=== PATIENT | female | born 1995 | race Caucasian/White ===

== ENCOUNTER 2017-04-08 13:39 | Emergency (ER) | payer MEDICAID, OTHER ==
[~2017-04-08] VITALS: Ht 160 cm; Wt 78.4 kg
[~2017-04-08 13:39] MED LIST: PNV1TABL43 PO
[2017-04-08 13:40] VITALS: Ht 160 cm; Wt 78.4 kg
--- NOTE | 2017-04-08 13:56 | ERA ---
ER Documentation Chief Complaint Date/Time DATE: 04/08/17 TIME: 13:52 Chief Complaint right index pain/injury HPI Otherwise healthy 21-year-old female presented with a chief complaint of right second digit swelling 1-2 weeks. Patient has not done anything for the symptoms at this time. Patient denies any loss of motion, numbness, tingling or loss of sensation. Patient denies trauma, medical conditions, alcohol or drug use. Vaccination status is up-to-date including Tdap. Nursing notes have been reviewed and are consistent with history given. ROS All systems reviewed and are negative except as per history of present illness. Medications Home Meds Active Scripts Hydrocodone/Acetaminophen ([place] 5-325 Tablet) 1 Each Tablet, 1 TAB PO Q6H Y for PAIN, #7 TAB Prov:JESSICA GONZALEZ PA-C 04/08/17 Cephalexin* (Keflex*) 500 Mg Capsule, 500 MG PO QID for 5 Days, CAP Prov:JESSICA GONZALEZ PA-C 04/08/17 Sulfamethoxazole/Trimethoprim* (Bactrim Ds* Tablet) 1 Each Tablet, 1 TAB PO BID , #14 TAB Prov:JESSICA GONZALEZ PA-C 04/08/17 Reported Medications Vit/Fe Fumarate/Fa* ( Vitamin Tablet*) 1 Tab Tablet, 1 TAB PO DAILY, TAB 09/01/14 Allergies Allergies: Coded Allergies: No Known Allergy (Unverified , 09/01/14) PMhx/Soc Hx Alcohol Use: No Hx Substance Use: No Hx Tobacco Use: No Physical Exam Vitals Vital Signs Date Time Temp Pulse Resp B/P Pulse Ox O2 Delivery O2 Flow Rate FiO2 04/08/17 13:40 98.1 69 18 108/69 99 Physical Exam Const: Well-appearing overweight 21-year-old female no acute distress Head: Atraumatic Eyes: Normal Conjunctiva ENT: Normal External Ears, Nose and Mouth. Neck: Full range of motion..~ No meningismus. Resp: Clear to auscultation bilaterally Cardio: Regular rate and rhythm, no murmurs Abd: Soft, non tender, non distended. Normal bowel sounds Skin: As noted in extremity exam. No petechiae or rashes Back: No midline or flank tenderness Ext: Swelling and erythema distal to the DIP of the right and second digit along the nail bed fold crossing the midline. Mild to moderate tenderness. No palmar swelling or erythema noted. Neur: Awake and alert Psych: Normal Mood and Affect Results 24 hrs Current Medications Medications (Trade) Dose Ordered Sig/Theresa Route PRN Reason Start Time Stop Time Status Last Admin Dose Admin Lidocaine (Xylocaine 2% (Mdv) 20 ml) 20 ml ONCE ONCE INJ 04/08/17 14:00 04/08/17 14:01 DC Procedures/MDM This is a 21-year-old female presenting with a chief complaint of right second digit swelling. Patient has signs and symptoms most consistent with paronychia versus abscess. Wound area is fluctuant. I&D was performed using 3 mL of lidocaine without epi for digital block of the affected extremity. 11 blade used to make a 4 mm horizontal incision along the nail fold. 2 mL of purulent material was expressed. Patient was neurovascularly intact after the procedure. Patient will be discharged with antibiotics as well as discharge instructions with return precautions. Low suspicion for neurovascular compromise or bony involvement. Vitals are stable and current condition is appropriate for discharge. Discharge meds: Bactrim and Keflex p.o. Departure Diagnosis: Primary Impression: Paronychia Qualified Code: L03.011 - Paronychia, right Condition: Stable Additional Instructions: Follow up with your PCP within the next 1-3 days for a more thorough evaluation and a possible referral to a specialist. Return the the emergency department immediately if symptoms worsen or change. If you have any questions regarding medications, ask your pharmacist or us before you leave. If any adverse reactions occur while taking your medications, discontinue the treatment and return to the emergency department immediately. Take your medications as directed, and complete the entire course of treatment. JESSICA GONZALEZ PA-C Apr 08, 2017 13:56
[2017-04-08] MEDS ORDERED: LIDOCAINE 2% (MDV) 20 ML INJ INJ ONE (14:00)
[2017-04-08] MEDS ORDERED: SULF1TAB31 PO (15:10)
[2017-04-08] MEDS ORDERED: CEPH-443 PO (15:10)
[2017-04-08] MEDS ORDERED: HYDR-906 PO (15:10)
[2017-04-08] MEDS ORDERED: IBUPROFEN 600 MG TAB PO ONE (16:00)
== END 2017-04-08 15:41 | disposition home or self-care (01) ==
LOC: FTE 13:39
DX: L03.011 Cellulitis of right finger (principal)
CPT/HCPCS: 26010; Z7502; Z7610

== ENCOUNTER 2017-04-29 06:27 | Emergency (ER) | payer OTHER ==
[~2017-04-29] VITALS: Ht 157.5 cm; Wt 74.5 kg
[~2017-04-29 06:27] MED LIST changes: +CEPH-443 PO; +HYDR-906 PO; +SULF1TAB31 PO
[2017-04-29 06:33] VITALS: Ht 157.5 cm; Wt 74.5 kg
[2017-04-29] MEDS ORDERED: ONDANSETRON 4 MG INJ IV STA (07:31)
[2017-04-29] MEDS ORDERED: SOD CHLORIDE 0.9% 1,000 ML IV STA (07:31)
[2017-04-29] MEDS ORDERED: morphine 4 MG/ML VIAL IV STA ×2 (07:31→09:57)
[2017-04-29 08:12] LABS: BASOPHIL # 0.1 10^3/ul (0.0-0.1); BASOPHILS % 0.9 % (0.0-2.0); EOSINOPHILS # 0.1 10^3/ul (0.0-0.5); EOSINOPHILS % 1.2 % (0.0-7.0); HEMATOCRIT 37.9 % (37.0-47.0); HEMOGLOBIN 13.4 g/dl (12.0-16.0); LYMPHOCYTES # 1.8 10^3/ul (0.8-2.9); LYMPHOCYTES % 22.3 % (18.0-55.0); MEAN CORPUSCULAR HEMOGLOBIN 30.9 pg (29.0-33.0); MEAN CORPUSCULAR HGB CONC 35.4 g/dl (32.0-37.0); MEAN CORPUSCULAR VOLUME 87.3 fl (72.0-104.0); MONOCYTE # 0.7 10^3/ul (0.3-0.9); NEUTROPHILS % 67.4 % (30.0-74.0); PLATELET COUNT 315 10^3/UL (140-415); RED BLOOD COUNT 4.34 10^6/ul (4.20-5.40); RED CELL DISTRIBUTION WIDTH 12.4 % (11.5-14.5); WHITE BLOOD COUNT 8.1 10^3/ul (4.8-10.8)
[2017-04-29 08:19] LABS: ADD UMIC YES; UR ASCORBIC ACID 40 mg/dL (NEGATIVE); UR BILIRUBIN (Dip) NEGATIVE (NEGATIVE); UR BLOOD (Dip) NEGATIVE (NEGATIVE); UR CLARITY CLEAR (CLEAR); UR COLOR YELLOW (YELLOW); UR GLUCOSE (Dip) NEGATIVE (NEGATIVE); UR KETONES (Dip) NEGATIVE (NEGATIVE); UR LEUKOCYTE ESTERASE (Dip) NEGATIVE Leu/ul (NEGATIVE); UR MUCUS FEW /HPF (NONE SEEN); UR NITRITE (Dip) NEGATIVE (NEGATIVE); UR RBC 1 /HPF (0-5); UR SPECIFIC GRAVITY (Dip) 1.032 (1.003-1.030); UR TOTAL PROTEIN (Dip) 1+ mg/dl (NEGATIVE); UR UROBILINOGEN (Dip) NEGATIVE (NEGATIVE)
--- NOTE | 2017-04-29 08:47 | RADRPT ---
PROCEDURE: CT Abdomen and Pelvis without contrast. CLINICAL INDICATION: Abdominal pain. TECHNIQUE: CT scan of the abdomen and pelvis without contrast was performed on a multidetector hig h-resolution CT scanner. The patient was scanned without intravenous contrast. Coronal and sagittal reformatted images were obtained from the axial source images. Images were reviewed on a high-resol [employer] PACS workstation. One or more of the following dose reduction techniques were used: Automated exposure control, adjustment of the mA and/or kV according to patient size, use of iterative recon struction technique. The total exam CTDI equals 10.67 mGy and the total exam DLP equals 602.26 mGy- cm. COMPARISON: None. FINDINGS: CT abdomen: The lung bases are clear. The heart size is normal, without pericardial thickening or effusion. The liver is normal in size and density without focal mass or intrahepatic biliary dilatation. The spleen is normal in size and homogeneous in density. The stomach is grossly unremarkable. The panc reas as visualized is normal. Small gallstones are noted. Otherwise, the gallbladder and biliary t ree are unremarkable and there is no evidence for biliary dilatation. The adrenal glands are symmet aliyah and normal. The kidneys are symmetrically unremarkable as well. No renal calculus or obstructi ve uropathy or mass lesion is seen. The aorta is of normal caliber. There is no retroperitoneal lymphadenopathy. The rhona hepatis reg ion is clear. There is mild nonspecific fat stranding seen within the left upper quadrant, anterior to the proximal descending colon. No definite associated adjacent bowel wall thickening is seen. A small amount of layering hypodense fluid is seen within the inferior left paracolic gutter (image 1 27, series 3). This appears to be continuous with the left ovary. A small amount of fluid is also present in the anterior midline pelvis, just inferior to the mid sigmoid colon without evidence of a ssociated colonic wall edema. CT pelvis: The small bowel loops situated within the pelvis are unremarkable. There is suggestion of arcuate v ersus septate uterus with prominent uterine horns and focal thickening of the midline fundal myometr ium which measures up to 2.5 cm. A 2.8 cm left adnexal cyst is present, within normal limits in a m oderately female. The pelvic sidewalls and inguinal regions are clear. The appendix is not clearly seen. A small focus of gas is seen non dependently within the urinary bladder. The surrounding osseous structures are unremarkable. No osteolytic or osteoblastic lesion is detec adina. IMPRESSION: 1. Small amount of left upper quadrant mesenteric versus omental fat stranding, nonspecific . No d efinite associated bowel wall thickening is seen however evaluation is limited without IV / enteric contrast. Considerations include mild enterocolitis or panniculitis. 2. 2.8 cm left adnexal cyst with adjacent layering hyperdense fluid tracking into the left paracoli c gutter. Ruptured hemorrhagic ovarian cyst is a consideration. Pelvic ultrasound may be useful fo r further evaluation. 3. Small focus of gas seen non dependently within the urinary bladder. Correlate with recent histo ry of catheterization or urinary analysis for cystitis. 4. Suggestion of arcuate versus septate uterus as described above. 5. Cholelithiasis without evidence of cholecystitis. RPTAT: AA .Elie Gould MD, MD Date Time Electronically viewed and signed by .Elie Gould MD, on 04/29/2017 08:47 .A/
[2017-04-29 09:26] LABS: ALBUMIN 4.3 g/dl (3.3-4.9); ALBUMIN/GLOBULIN RATIO 1.65; CALCIUM 8.4 mg/dl (8.4-10.2); CREATININE 0.64 mg/dl (0.44-1.00); POTASSIUM 4.1 mmol/L (3.5-5.1); TOTAL PROTEIN 6.9 g/dl (6.1-8.1)
--- NOTE | 2017-04-29 11:09 | RADRPT ---
PROCEDURE: US Pelvis. CLINICAL INDICATION: Pelvic and abdominal pain. TECHNIQUE: Multiple sonographic images of the pelvis were obtained utilizing a transabdominal and endovaginal technique. The images were reviewed on a PACS workstation. COMPARISON: None. FINDINGS: The uterus is visualized and measures 9.5 cm sagittal by 4.1 cm AP by 5.8 cm transverse. There is an uterus subseptate arcuate uterus versus arcuate uterus. The endometrial echo complex is normal and measures 1.3 cm. There is no evidence for free fluid. The right ovary has a normal echotexture and measures 3.4 x 1.7 by 2.5 cm with normal blood flow on Doppler imaging. Trace fluid is noted in the right adnexal area. . The left ovary has a normal echotexture and measures 3.1 by 2.5 x 4 cm.. No adnexal masses are noted. IMPRESSION: 1. 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 A pelvic MRI can be performed for f urther characterization if clinically indicated. 2. Trace fluid is noted in the right adnexal area. Otherwise, unremarkable pelvic not of the sonog antonette para Physician Urvashi Date Time Electronically viewed and signed by Physician Urvashi on 04/29/2017 11:09 /
[2017-04-29] MEDS ORDERED: ACET325T33 PO (11:58)
[2017-04-29] MEDS ORDERED: ONDA4TAB14 PO (11:58)
[2017-04-29 12:18] VITALS: BP 112/61; PULSE 61; TEMP 98.2
--- NOTE | 2017-04-29 12:30 | ERD ---
ER Documentation Chief Complaint Date/Time DATE: 04/29/17 TIME: 12:18 Chief Complaint Patient complains of rectal and buttock pain x since last night HPI 21-year-old female patient with no significant past medical history presents the ED complaining of anal and abdominal pain that started intermittently for 3 weeks. Reports that she was having sex with her boyfriend earlier today and started to have worsening pain. States that she has had a few episodes of nonbilious nonbloody vomiting. Reports that her last menses was on March 17, 2017. Denies any chest pain, shortness of breath, nausea, vomiting, diarrhea. ROS All systems reviewed and are negative except as per history of present illness. Medications Home Meds Active Scripts Ondansetron (Ondansetron Odt) 4 Mg Tab.rapdis, 4 MG PO Q6H Y for NAUSEA AND/OR VOMITING, #10 TAB Prov:ADDY DENTON PA-C 04/29/17 Acetaminophen* (Tylenol*) 325 Mg Tablet, 2 TAB PO Q8 Y for PAIN AND OR ELEVATED TEMP, #20 TAB Prov:ADDY DENTON PA-C 04/29/17 Hydrocodone/Acetaminophen ([place] 5-325 Tablet) 1 Each Tablet, 1 TAB PO Q6H Y for PAIN, #7 TAB Prov:JESSICA GONZALEZ PA-C 04/08/17 Cephalexin* (Keflex*) 500 Mg Capsule, 500 MG PO QID for 5 Days, CAP Prov:JESSICA GONZALEZ PA-C 04/08/17 Sulfamethoxazole/Trimethoprim* (Bactrim Ds* Tablet) 1 Each Tablet, 1 TAB PO BID , #14 TAB Prov:JESSICA GONZALEZ PA-C 04/08/17 Reported Medications Vit/Fe Fumarate/Fa* ( Vitamin Tablet*) 1 Tab Tablet, 1 TAB PO DAILY, TAB 09/01/14 Allergies Allergies: Coded Allergies: No Known Allergy (Unverified , 04/29/17) PMhx/Soc History of Surgery: No Anesthesia Reaction: No Hx Neurological Disorder: No Hx Respiratory Disorders: No Hx Cardiac Disorders: No Hx Psychiatric Problems: No Hx Miscellaneous Medical Probl: No Hx Alcohol Use: No Hx Substance Use: No Hx Tobacco Use: No Smoking Status: Never smoker Physical Exam Vitals Vital Signs Date Time Temp Pulse Resp B/P Pulse Ox O2 Delivery O2 Flow Rate FiO2 04/29/17 06:33 98.0 66 20 102/57 98 Physical Exam Const: [id number], well-nourished. In no acute distress. Head: Atraumatic, normocephalic Eyes: Normal Conjunctiva without injection. No purulent discharge. ENT: Normal external ear, nose. Moist oropharynx without tonsillar exudates. Non -erythematous pharynx. Uvula midline. No drooling. No trismus. Neck: No cervical midline tenderness. Full range of motion. No meningismus. No cervical lymphadenopathy. No JVD. Resp: Clear to auscultation bilaterally. No wheezing, rhonchi, rales, or crackles. No accessory muscle use. No retractions. Cardio: Regular rate and rhythm. No murmurs, rubs or gallops. Abd: Soft, diffuse generalized tenderness of the abdomen, non distended. Normal bowel sounds. No palpable masses. No rebound tenderness. No guarding. Negative McBurney's point. Negative psoas sign. Negative obturator sign. Skin: No petechiae or rashes Back: No midline tenderness. No CVA tenderness. Ext: No cyanosis, or edema. Neur: Awake and alert. Normal gait. Normal coordination. Psych: Normal Mood and Affect Results 24 hrs Laboratory Tests Test 04/29/17 07:45 04/29/17 08:00 04/29/17 08:50 Urine Color YELLOW Urine Clarity CLEAR Urine pH 5.0 Urine Specific Benedict 1.032 Urine Ketones NEGATIVEmg/dL Urine Nitrite NEGATIVEmg/dL Urine Bilirubin NEGATIVEmg/dL Urine Urobilinogen NEGATIVEmg/dL Urine Leukocyte Esterase NEGATIVELeu/ul Urine Microscopic RBC 1/HPF Urine Microscopic WBC 2/HPF Urine Mucus FEW/HPF Urine Hemoglobin NEGATIVEmg/dL Urine Glucose NEGATIVEmg/dL Urine Total Protein 1+mg/dl White Blood Count 8.110^3/ul Red Blood Count 4.3410^6/ul Hemoglobin 13.4g/dl Hematocrit 37.9% Mean Corpuscular Volume 87.3fl Mean Corpuscular Hemoglobin 30.9pg Mean Corpuscular Hemoglobin Concent 35.4g/dl Red Cell Distribution Width 12.4% Platelet Count 36597^3/UL Mean Platelet Volume 10.0fl Neutrophils % 67.4% Lymphocytes % 22.3% Monocytes % 8.0% Eosinophils % 1.2% Basophils % 0.9% Nucleated Red Blood Cells % 0.0/100WBC Neutrophils # (Manual) 510^3/ul Lymphocytes # 1.810^3/ul Monocytes # 0.710^3/ul Eosinophils # 0.110^3/ul Basophils # 0.110^3/ul Nucleated Red Blood Cells # 0.010^3/ul Serum HCG, Qualitative NEGATIVE Sodium Level 141mmol/L Potassium Level 4.1mmol/L Chloride Level 108mmol/L Carbon Dioxide Level 22mmol/L Anion Gap 15 Blood Urea Nitrogen 13mg/dl Creatinine 0.64mg/dl Glucose Level 93mg/dl Calcium Level 8.4mg/dl Total Bilirubin 1.0mg/dl Direct Bilirubin 0.00mg/dl Indirect Bilirubin 1.0mg/dl Aspartate Amino Transf (AST/SGOT) 17IU/L Alanine Aminotransferase (ALT/SGPT) 27IU/L Alkaline Phosphatase 53IU/L Total Protein 6.9g/dl Albumin 4.3g/dl Globulin 2.60g/dl Albumin/Globulin Ratio 1.65 Lipase 44U/L Current Medications Medications (Trade) Dose Ordered Sig/Theresa Route PRN Reason Start Time Stop Time Status Last Admin Dose Admin Sodium Chloride (NS) 1,000 ml @ 1,000 mls/hr Q1H STAT IV 04/29/17 07:31 04/29/17 08:30 DC 04/29/17 07:50 Morphine Sulfate (morphine) 4 mg ONCE STAT IV 04/29/17 07:31 04/29/17 07:33 DC 04/29/17 07:50 Ondansetron HCl (Zofran Inj) 4 mg ONCE STAT IV 04/29/17 07:31 04/29/17 07:33 DC 04/29/17 07:50 Morphine Sulfate (morphine) 3 mg ONCE STAT IV 04/29/17 09:57 04/29/17 09:59 DC 04/29/17 10:23 Procedures/MDM This is a 21-year-old female patient with no significant past medical history presents the ED complaining abdominal pain, vomiting. Patient is afebrile and nontoxic-appearing. Patient has normal vital signs. Patient was further worked up with CBC, CMP, lipase, UA, urine , CT of abdomen and pelvis without contrast, pelvic ultrasound. Patient's pain and symptoms have improved after treatment with 7 mg IV morphine. CBC: No leukocytosis. No e/o of systemic infection. No e/o anemia. CMP: No e/o severe acidosis, alkalosis, renal failure, diabetic ketoacidosis, liver disease Lipase within normal limits. Urine: No leukocyte esterase, no nitrites, no hematuria. Urine : Negative PROCEDURE: US Pelvis. CLINICAL INDICATION: Pelvic and abdominal pain. TECHNIQUE: Multiple sonographic images of the pelvis were obtained utilizing a transabdominal and endovaginal technique. The images were reviewed on a PACS workstation. COMPARISON: None. FINDINGS: The uterus is visualized and measures 9.5 cm sagittal by 4.1 cm AP by 5.8 cm transverse. There is an uterus subseptate arcuate uterus versus arcuate uterus. The endometrial echo complex is normal and measures 1.3 cm. There is no evidence for free fluid. The right ovary has a normal echotexture and measures 3.4 x 1.7 by 2.5 cm with normal blood flow on Doppler imaging. Trace fluid is noted in the right adnexal area. . The left ovary has a normal echotexture and measures 3.1 by 2.5 x 4 cm.. No adnexal masses are noted. IMPRESSION: 1. 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 A pelvic MRI can be performed for further characterization if clinically indicated. 2. Trace fluid is noted in the right adnexal area. Otherwise, unremarkable pelvic not of the sonogram para PROCEDURE: CT Abdomen and Pelvis without contrast. CLINICAL INDICATION: Abdominal pain. TECHNIQUE: CT scan of the abdomen and pelvis without contrast was performed on a multidetector high-resolution CT scanner. The patient was scanned without intravenous contrast. Coronal and sagittal reformatted images were obtained from the axial source images. Images were reviewed on a high-resolution PACS workstation. One or more of the following dose reduction techniques were used: Automated exposure control, adjustment of the mA and/or kV according to patient size, use of iterative reconstruction technique. The total exam CTDI equals 10.67 mGy and the total exam DLP equals 602.26 mGy-cm. COMPARISON: None. FINDINGS: CT abdomen: The lung bases are clear. The heart size is normal, without pericardial thickening or effusion. The liver is normal in size and density without focal mass or intrahepatic biliary dilatation. The spleen is normal in size and homogeneous in density. The stomach is grossly unremarkable. The pancreas as visualized is normal. Small gallstones are noted. Otherwise, the gallbladder and biliary tree are unremarkable and there is no evidence for biliary dilatation. The adrenal glands are symmetric and normal. The kidneys are symmetrically unremarkable as well. No renal calculus or obstructive uropathy or mass lesion is seen. The aorta is of normal caliber. There is no retroperitoneal lymphadenopathy. The rhona hepatis region is clear. There is mild nonspecific fat stranding seen within the left upper quadrant, anterior to the proximal descending colon. No definite associated adjacent bowel wall thickening is seen. A small amount of layering hypodense fluid is seen within the inferior left paracolic gutter ( image 127, series 3). This appears to be continuous with the left ovary. A small amount of fluid is also present in the anterior midline pelvis, just inferior to the mid sigmoid colon without evidence of associated colonic wall edema. CT pelvis: The small bowel loops situated within the pelvis are unremarkable. There is suggestion of arcuate versus septate uterus with prominent uterine horns and focal thickening of the midline fundal myometrium which measures up to 2.5 cm. A 2.8 cm left adnexal cyst is present, within normal limits in a moderately female. The pelvic sidewalls and inguinal regions are clear. The appendix is not clearly seen. A small focus of gas is seen non dependently within the urinary bladder. The surrounding osseous structures are unremarkable. No osteolytic or osteoblastic lesion is detected. IMPRESSION: 1. Small amount of left upper quadrant mesenteric versus omental fat stranding , nonspecific . No definite associated bowel wall thickening is seen however evaluation is limited without IV / enteric contrast. Considerations include mild enterocolitis or panniculitis. 2. 2.8 cm left adnexal cyst with adjacent layering hyperdense fluid tracking into the left paracolic gutter. Ruptured hemorrhagic ovarian cyst is a consideration. Pelvic ultrasound may be useful for further evaluation. 3. Small focus of gas seen non dependently within the urinary bladder. Correlate with recent history of catheterization or urinary analysis for cystitis. 4. Suggestion of arcuate versus septate uterus as described above. 5. Cholelithiasis without evidence of cholecystitis. Patient has cholelithiasis without evidence of cholecystitis. Patient does have a 2.8 cm left ovarian cyst therefore a ruptured hemorrhagic ovarian cysts considered since there is fluid tracking in the left paracolic gutter. Low suspicion for gastritis, GERD, peptic ulcer disease, cholecystitis, choledocholithiasis, cholangitis, pancreatitis, appendicitis, bowel obstruction , ileus, volvulus, nephrolithiasis, pyelonephritis, hepatitis, perforated viscus , diverticulitis, abdominal hernia, acute abdomen, mesenteric ischemia or other emergent conditions. Discharge medications: Zofran, Tylenol Follow up with primary care physician in 1-2 days for referral to english composition teacher. Instructed patient to return to the ED sooner for any worsening symptoms. Patient's questions were answered. Patient understood and agreed with discharge plan. Patient discharged stable. Departure Diagnosis: Primary Impression: Abdominal pain Abdominal location: unspecified location Qualified Code: R10.9 - Abdominal pain, unspecified location Condition: Stable Patient Instructions: Abdominal Pain, What Are Ovarian Cysts?, Gallstones Referrals: [facility] YOU HAVE RECEIVED A MEDICAL SCREENING EXAM AND THE RESULTS INDICATE THAT YOU DO NOT HAVE A CONDITION THAT REQUIRES URGENT TREATMENT IN THE EMERGENCY DEPARTMENT. FURTHER EVALUATION AND TREATMENT OF YOUR CONDITION CAN WAIT UNTIL YOU ARE SEEN IN YOUR DOCTORS OFFICE WITHIN THE NEXT 1-2 DAYS. IT IS YOUR RESPONSIBILITY TO MAKE AN APPOINTMENT FOR FOLOW-UP CARE. IF YOU HAVE A PRIMARY DOCTOR --you should call your primary doctor and schedule an appointment IF YOU DO NOT HAVE A PRIMARY DOCTOR YOU CAN CALL OUR PHYSICIAN REFERRAL HOTLINE AT IF YOU CAN NOT AFFORD TO SEE A PHYSICIAN YOU CAN CHOSE FROM THE FOLLOWING [facility] [address] [facility]. [facility] [address] [facility] [facility] [address] [facility] [address] [facility]. [facility] [address] [facility]. [facility]. [address] [facility] YOU HAVE RECEIVED A MEDICAL SCREENING EXAM AND THE RESULTS INDICATE THAT YOU DO NOT HAVE A CONDITION THAT REQUIRES URGENT TREATMENT IN THE EMERGENCY DEPARTMENT. FURTHER EVALUATION AND TREATMENT OF YOUR CONDITION CAN WAIT UNTIL YOU ARE SEEN IN YOUR DOCTORS OFFICE WITHIN THE NEXT 1-2 DAYS. IT IS YOUR RESPONSIBILITY TO MAKE AN APPOINTMENT FOR FOLOW-UP CARE. IF YOU HAVE A PRIMARY DOCTOR --you should call your primary doctor and schedule and appointment IF YOU DO NOT HAVE A PRIMARY DOCTOR YOU CAN CALL OUR PHYSICIAN REFERRAL HOTLINE AT . IF YOU CAN NOT AFFORD TO SEE A PHYSICIAN YOU CAN CHOSE FROM THE FOLLOWING [facility] INSTITUTIONS: [facility] [address] [place] [address] [facility] [address] [place] [address] [facility] [address] [place] [address] [facility] URGENT CARE/SPECIALTIES [employer] [address] [facility] [address] [place], [place] [id number] OFFICE FAX DR.ABUSLEME REE [address] [place], [place] [id number] [place] [address] [place] [address] [address] CHAVE[address] [facility] [address] [facility], [address] [address] [address]ITA ORTIZ [address] [place] [address] [facility] [address] [place], [place] [address] [address] [facility] [id number] - DANIA BARRAZA [address], [facility] [address] [address] [address] [facility] [address], [facility] [address] [address] [facility] [address] [place], [place] [id number] [facility] Hours: 8:00 am - 5:00 pm Additional Instructions: Call your primary care doctor TOMORROW for an appointment during the next 1-2 days.See the doctor sooner or return here if your condition worsens before your appointment time. ADDY DENTON PA-C Apr 29, 2017 12:29 appointment time. ADDY DENTON PA-C Apr 29, 2017 12:29
== END 2017-04-29 12:22 | disposition home or self-care (01) ==
LOC: FTE 06:27
DX: R10.84 Generalized abdominal pain (principal); R10.2 Pelvic and perineal pain
CPT/HCPCS: 36415; 74176; 76856; 80053; 81001; 83690; 84703; 85025; 96374; 96375; 96376; J2270; J2405; J7030; Z7502